=== PATIENT | female | born 1940 | race Caucasian/White ===

== ENCOUNTER 2024-06-09 18:14 | Emergency (ER) | payer MEDICARE, SELFPAY ==
[2024-06-09 18:15] VITALS: BP 175/83; PULSE 74; RESP 18; TEMP 36.9; O2SAT 97; BMI 25.8
--- NOTE | 2024-06-09 18:21 | ED_ITS ---
Discharge Plan Disposition Patient Disposition: Xfer Short-Term Hosp Condition: Good Referrals Follow up/Referrals: Provider,Referral, MD [Primary Care Provider] - See instructions Activity Restrictions/Add. Instructions Additional Instructions/Restrictions: Patient to be transported by EMS to [facility] for trauma evaluation and care of Dr. Hassan Clinical Impressions Clinical Impression: Closed cervical spine fracture Qualifiers: Encounter type: initial encounter Cervical vertebra fracture level: C3 Right rib fracture Qualifiers: Encounter type: initial encounter Rib fracture type: single rib Fracture type: closed Qualified Code(s): S22.31XA - Fracture of one rib, right side, initial encounter for closed fracture Fracture of left patella Qualifiers: Encounter type: initial encounter Fracture type: closed Laceration of face Qualifiers: Encounter type: initial encounter Qualified Code(s): S01.81XA - Laceration without foreign body of other part of head, initial encounter Discharge ED Provider: Tino Husain General Adult HPI <LESA Cervantes - Last Filed: 06/09/24 20:58> General Chief complaint: Fall Stated complaint: [id number] forehead lac Time Seen by Provider: 06/09/24 18:21 Related Data Allergies Allergy/AdvReac Type Severity Reaction Status Date / Time Penicillins Allergy Verified 06/09/24 18:35 <Tino Husain MD - Last Filed: 06/09/24 20:58> History of Present Illness HPI narrative: Please note that above description of symptoms, in this electronic medical record under categorization of recalled from ER triage doctor by RN are reflective of an initial nursing assessment, however, is not reflective of my full history and physical exam that was personally taken and clarified. Consequentially, this preceding description of symptoms, which may include the patient's categorized chief complaint in the EMR, do not reflect my personal clinical impression, and the ultimate description of history of present illness and patient stated complaints should be deferred to this section of the note. Unless stated otherwise or congruent with this section of the note, additional signs, symptoms, or incongruence should be interpreted as inaccurate with my clinical impression. PFSH <LESA Cervantes - Last Filed: 06/09/24 20:58> [facility] Disclaimer: The information contained in this section may have been updated after the patient was seen, as this information can be updated by other users. Social History Smoking Status: Never smoker alcohol intake: never current occupational status: retired Travel in the last 8 weeks: None <LESA Cervantes - Last Filed: 06/09/24 20:58> ROS Obtained: Yes Systems reviewed as appropriate & no additional complaints except as documented Physical Exam <LESA Cervantes - Last Filed: 06/09/24 20:58> General General appearance: alert and in no apparent distress Head Head exam: atraumatic and normal inspection Eye Eye exam: Present normal appearance, PERRL and EOMI ENT ENT exam: Present normal exam, normal oropharynx and mucous membranes moist Neck Neck exam: Present normal inspection, full ROM and trachea midline; Absent lymphadenopathy Chest Chest inspection: Present normal inspection and symmetric chest wall rise Respiratory Respiratory exam: Present normal lung sounds bilaterally; Absent accessory muscle use Cardiovascular Cardiovascular exam: Present regular rate, normal rhythm, normal heart sounds, +S1 and +S2 Abdominal Exam Abdominal exam: Present soft and normal bowel sounds; Absent tenderness, guarding or rebound Extremities Exam Extremities exam: Present normal inspection and full ROM Neurological Exam Neurological exam: Present alert, oriented X3 and CN II-XII intact Psychiatric Psychiatric exam: Present normal affect and normal mood Skin Skin exam: Present warm, dry and normal color Lymphatic Lymphatic Findings: no adenopathy <Tino Husain MD - Last Filed: 06/09/24 20:58> Head Head exam: other (Laceration on forehead, hemostatic) Neck Neck exam: Present other (C-collar is) Chest Chest inspection: Present tenderness (Right-sided, no overlying skin changes) Extremities Exam Extremities exam: Present tenderness (At left knee with associated erythema) Neurological Exam Neurological exam: Absent motor sensory deficit Medical Decision Making <LESA Cervantes - Last Filed: 06/09/24 20:58> Vital Signs: 06/09/24 18:15 06/09/24 19:30 06/09/24 20:00 Temperature 98.4 F Temperature Source Oral Pulse Rate 65 66 Pulse Rate [Right Radial] 74 Respiratory Rate 18 Blood Pressure 168/79 H 171/82 H Blood Pressure [Right Arm] 175/83 H Blood Pressure Mean 127 136 Blood Pressure Mean [Right Arm] 113 02 Sat by Pulse Oximetry 97 96 96 Oxygen Delivery Method Room Air Room Air Room Air 06/09/24 20:30 Temperature Temperature Source Pulse Rate 71 Pulse Rate [Right Radial] Respiratory Rate Blood Pressure 162/62 H Blood Pressure [Right Arm] Blood Pressure Mean 120 Blood Pressure Mean [Right Arm] 02 Sat by Pulse Oximetry 98 Oxygen Delivery Method Room Air Lab Data Lab Results 06/09/24 : WBC 14.3 H, RBC 5.16, Hgb 14.2, Hct 42.7, MCV 82.7, MCH 27.4, MCHC 33.1, RDW 14.3, Plt Count 281, MPV 8.5, Neut % (Auto) 67.8, Lymph % (Auto) 23.7, [place] % (Auto) 7.0, Eos % (Auto) 0.7, Baso % (Auto) 0.8, Neut # (Auto) 9.7 H, Lymph # (Auto) 3.4, Rose[place] # (Auto) 1.0, Eos # (Auto) 0.1, Baso # (Auto) 0.1, PT 10.4, INR 0.92, Sodium 140, Potassium 4.3, Chloride 108 H, Carbon Dioxide 24, Anion Gap 12.3, BUN 16, Creatinine 0.90, Estimated Creat Clear 46, Estimated GFR 59, Est GFR ( Amer) 72, Glucose 107 H, Calcium 9.5, Total Bilirubin 0.5, AST 47 H, ALT 35, Alkaline Phosphatase 99, Total Protein 7.7, Albumin 4.4, G lobulin 3.3 H, Albumin/Globulin Ratio 1.3 06/09/24 Unknown 06/09/24 Unknown Orders (Tests/Meds): ED MEDICATIONS Discontinued Medications Generic Name Dose Route Start Last Admin Trade Name Elliotq PRN Reason Stop Dose Admin Acetaminophen 1,000 mg 06/09/24 18:27 06/09/24 18:38 Acetaminophen 1,000mg/100ml Vial IV 06/09/24 18:28 1,000 mg ONCE ONE Administration Lactated Ringer's 1,000 mls @ 999 mls/hr 06/09/24 18:27 06/09/24 18:38 Lactated Ringer's 1000 Ml Bag IV 06/09/24 19:27 999 mls/hr .Q1H1M ONE Administration Ketorolac Tromethamine 15 mg 06/09/24 18:27 06/09/24 18:38 Ketorolac 30mg/Ml Vial IV 06/09/24 18:28 15 mg ONCE ONE Administration Lidocaine/Epinephrine 20 ml 06/09/24 18:35 06/09/24 18:53 Lidocaine 1% W/Epi 1:100,000 20ml Vial SQ 06/09/24 18:36 20 ml ONCE ONE Administration Tetanus/Reduced Diphtheria/Acell Pertussis 0.5 ml 06/09/24 18:27 06/09/24 18:47 Tet/Diphth/Pert-Adult 0.5ml Syringe IM 06/09/24 18:28 0.5 ml .ONCE ONE Administration ORDERS Category Date Time Status CT cervical spine wo con Stat Cat Scan 06/09/24 18:[address] chest wo con Stat Cat Scan 06/09/24 18:[address] facial bones wo con Stat Cat Scan 06/09/24 18:[address] head/brain wo con Stat Cat Scan 06/09/24 18:29 Completed XR knee LT 4V Stat Exams 06/09/24 18:27 Completed CBC w/Auto Diff [Complete Blood Count Auto Diff] Stat Lab 06/09/24 Completed CMP [Comprehensive Metabolic Panel] Stat Lab 06/09/24 Completed INR [Prothrombin Time INR] Stat Lab 06/09/24 Completed Medical Decision Narrative: In summary patient is a [age, sex] who presents to the emergency department for evaluation of [complaint]. Patient is [hemodynamically stable/unstable] upon arrival, [febrile/afebrile]. [Unremarkable physical exam, nonfocal exam versus focal remarkable exam]. Differential diagnosis includes [DDx]. Initial workup will be conducted with [hematologic labs, imaging, respiratory swab, describe workup]. Initial interventions include [crystalloid bolus, medications, p.o. challenge, etc.] initial workup reviewed by me [hematologic labs are remarkable for... Imaging remarkable for... Urinalysis remarkable for]. Upon repeat evaluation [patient had acceptable resolution of symptoms, had persistent pain for which additional interventions were conducted (describe interventions), tolerated p.o., was ambulatory, etc.]. Given this [patient is appropriate for discharge at this time and will be discharged with a prescription for... The case was discussed with hospital medicine regarding management and they will admit the patient their service for continued evaluation at this time... Etc.] Places where you can increase complexity: I informally interpreted the patient's chest x-ray or CT read and is remarkable for... Documenting what the court monitor shows with rate and rhythm Consideration of test but deferring. Ex: I considered chest x-ray on this patient however given that they have no oxygen requirement and are clear to auscultation all lung estrada will be deferred. Social determinants of health: Given that patient is undomiciled increases complexity. Given that patient has polysubstance abuse compounds all aspects of care <Tino Husain MD - Last Filed: 06/09/24 20:58> Medical Records Medical records reviewed: Yes I reviewed the patient's medical records. Jagdeep Inquiry Pt receiving controlled substance: No Jagdeep was queried for this patient: No Vital Signs: 06/09/24 18:15 06/09/24 19:30 06/09/24 20:00 Temperature 98.4 F Temperature Source Oral Pulse Rate 65 66 Pulse Rate [Right Radial] 74 Respiratory Rate 18 Blood Pressure 168/79 H 171/82 H Blood Pressure [Right Arm] 175/83 H Blood Pressure Mean 127 136 Blood Pressure Mean [Right Arm] 113 02 Sat by Pulse Oximetry 97 96 96 Oxygen Delivery Method Room Air Room Air Room Air 06/09/24 20:30 Temperature Temperature Source Pulse Rate 71 Pulse Rate [Right Radial] Respiratory Rate Blood Pressure 162/62 H Blood Pressure [Right Arm] Blood Pressure Mean 120 Blood Pressure Mean [Right Arm] 02 Sat by Pulse Oximetry 98 Oxygen Delivery Method Room Air Lab Data Lab Results 06/09/24 : WBC 14.3 H, RBC 5.16, Hgb 14.2, Hct 42.7, MCV 82.7, MCH 27.4, MCHC 33.1, RDW 14.3, Plt Count 281, MPV 8.5, Neut % (Auto) 67.8, Lymph % (Auto) 23.7, Roseau % (Auto) 7.0, Eos % (Auto) 0.7, Baso % (Auto) 0.8, Neut # (Auto) 9.7 H, Lymph # (Auto) 3.4, Rose[place] # (Auto) 1.0, Eos # (Auto) 0.1, Baso # (Auto) 0.1, PT 10.4, INR 0.92, Sodium 140, Potassium 4.3, Chloride 108 H, Carbon Dioxide 24, Anion Gap 12.3, BUN 16, Creatinine 0.90, Estimated Creat Clear 46, Estimated GFR 59, Est GFR ( Amer) 72, Glucose 107 H, Calcium 9.5, Total Bilirubin 0.5, AST 47 H, ALT 35, Alkaline Phosphatase 99, Total Protein 7.7, Albumin 4.4, G lobulin 3.3 H, Albumin/Globulin Ratio 1.3 Orders (Tests/Meds): ED MEDICATIONS Discontinued Medications Generic Name Dose Route Start Last Admin Trade Name Freq PRN Reason Stop Dose Admin Acetaminophen 1,000 mg 06/09/24 18:27 06/09/24 18:38 Acetaminophen 1,000mg/100ml Vial IV 06/09/24 18:28 1,000 mg ONCE ONE Administration Lactated Ringer's 1,000 mls @ 999 mls/hr 06/09/24 18:27 06/09/24 18:38 Lactated Ringer's 1000 Ml Bag IV 06/09/24 19:27 999 mls/hr .Q1H1M ONE Administration Ketorolac Tromethamine 15 mg 06/09/24 18:27 06/09/24 18:38 Ketorolac 30mg/Ml Vial IV 06/09/24 18:28 15 mg ONCE ONE Administration Lidocaine/Epinephrine 20 ml 06/09/24 18:35 06/09/24 18:53 Lidocaine 1% W/Epi 1:100,000 20ml Vial SQ 06/09/24 18:36 20 ml ONCE ONE Administration Tetanus/Reduced Diphtheria/Acell Pertussis 0.5 ml 06/09/24 18:27 06/09/24 18:47 Tet/Diphth/Pert-Adult 0.5ml Syringe IM 06/09/24 18:28 0.5 ml .ONCE ONE Administration ORDERS Category Date Time Status CT cervical spine wo con Stat Cat Scan 06/09/24 18:[address] chest wo con Stat Cat Scan 06/09/24 18:[address] facial bones wo con Stat Cat Scan 06/09/24 18:[address] head/brain wo con Stat Cat Scan 06/09/24 18:29 Completed XR knee LT 4V Stat Exams 06/09/24 18:27 Completed CBC w/Auto Diff [Complete Blood Count Auto Diff] Stat Lab 06/09/24 Completed CMP [Comprehensive Metabolic Panel] Stat Lab 06/09/24 Completed INR [Prothrombin Time INR] Stat Lab 06/09/24 Completed Medical Decision Narrative: This is an 84-year-old female with history of hypertension, hyperlipidemia, dementia not on anticoagulation presenting with fall. Patient was walking with her grandson, tripped, fell headfirst into large plant pot. No loss of conscious. Because of the fall, EMS was called. Patient was ambulatory on scene, brought to the emergency department for further evaluation. All caught on video, patient brought due to laceration on forehead. History obtained with patient family largely as well as EMS. On initial evaluation, patient alert oriented to self, hemodynamically stable. She has laceration on forehead is largely hemostatic. C-collar in place, difficult to assess for tenderness. Chest wall tenderness on the right, no overlying skin changes. Bilateral breath sounds, cardiac exam normal. Pulses equal and symmetric. Abdomen is soft, nontender, nondistended. She does have tenderness overlying her left knee at the patella with associated erythema. Differential includes intracranial hemorrhage, clinically significant neurologic C-spine injury, vascular injury, rib fracture, pneumothorax, pulmonary contusion, left lower extremity fracture, among others. Toradol, acetaminophen, LR, lidocaine closure. Independent rotation of workup with no intracranial hemorrhage. She does have C3 fracture as well as left patella fracture and right fifth rib fracture this closed without underlying pulmonary involvement. Given polytrauma fall from standing, [facility] contacted and case was discussed at length. Graciously accepted by Dr. Hassan. Laceration was closed, see laceration repair note. [employer] disclaimer Much of this encounter note is an electronic disposal worker spoken language to printed text. Electronic disposal worker of the spoken language may permit errors. Although I have reviewed the note, some errors may still exist. Procedures <LESA Cervantes - Last Filed: 06/09/24 20:58> Laceration Laceration 1: Site: face Side (If applicable): right Size (cm): 4.5 Description: linear Depth: simple, single layer Local Anesthetic: lidocaine 1% and with epi Amount of anesthesia used (mL): 10 Pre-repair: wound explored, irrigated extensively and deep structures intact Skin layer closed with: nylon Size (cm): 6-0 Number of sutures: 10 Critical Care <Tino Husain MD - Last Filed: 06/09/24 20:58> Critical Care Time Critical Care Time: No
--- NOTE | 2024-06-09 18:27 | XR_ITS ---
PROCEDURE INFORMATION: Exam: XR Left Knee Exam date and time: 06/09/2024 6:55 PM Age: 84 years old Clinical indication: Injury or trauma; Fall; Blunt trauma and swelling (edema); Knee; Left; Additional info: Fall, swelling at patella TECHNIQUE: Imaging protocol: Radiologic exam of the left knee. Views: 4 or more views. COMPARISON: No relevant prior studies available. FINDINGS: Bones/joints: Moderate osteophytosis and degenerative changes involve the 3 compartments of the left knee. Vertical lucency of the patella with probable avulsion fragment best seen on AP view at the lateral margin of the patella measuring 2.6 x 0.9 cm. Findings not well seen on sunrise view. Considering confirming facture findings with CT. Soft tissues: Normal. IMPRESSION: Vertical lucency of the patella with probable avulsion fragment best seen on AP view at the lateral margin of the patella measuring 2.6 x 0.9 cm. Findings not well seen on sunrise view. Considering confirming facture findings with CT.
--- NOTE | 2024-06-09 18:29 | CT_ITS ---
PROCEDURE INFORMATION: Exam: CT Head Without Contrast Exam date and time: 06/09/2024 6:51 PM Age: 84 years old Clinical indication: Injury or trauma; Fall; Blunt trauma (contusions or hematomas); Additional info: Trauma, critical injury suspected TECHNIQUE: Imaging protocol: Computed tomography of the head without contrast. Radiation optimization: All CT scans at this facility use at least one of these dose optimization techniques: automated exposure control; mA and/or kV adjustment per patient size (includes targeted exams where dose is matched to clinical indication); or iterative reconstruction. COMPARISON: No relevant prior studies available. FINDINGS: Brain: Old ischemia noted in the right basal ganglia. Scattered hypodensities noted in the bilateral deep white. Atherosclerosis noted in the bilateral cavernous carotid and vertebral arteries. No midline shift. Basal cisterns are patent. No acute hemorrhage or obvious acute infarct. Cortical volume loss noted. Cerebral ventricles: No ventriculomegaly. Paranasal sinuses: Visualized sinuses are unremarkable. No fluid levels. Mastoid air cells: Visualized mastoid air cells are well aerated. Orbital cavities: Left orbital lens replacement noted. Bones: Unremarkable. No acute fracture. Soft tissues: Right frontal and right periorbital swelling oted. Bilateral globes are intact. IMPRESSION: 1. Right frontal and right periorbital swelling noted 2. No acute intracranial disease or hemorrhage. 3. No obvious acute infarct. Please note if the patient's symptoms do not improve, or worsen, consider MRI with diffusion imaging. 4. Chronic deep white matter ischemic and senescent changes noted. Please see above.
--- NOTE | 2024-06-09 18:29 | CT_ITS ---
PROCEDURE INFORMATION: Exam: CT Cervical Spine Without Contrast Exam date and time: 06/09/2024 6:56 PM Age: 84 years old Clinical indication: Injury or trauma; Fall; Blunt trauma; Additional info: Trauma, critical injury suspected, fall TECHNIQUE: Imaging protocol: Computed tomography of the cervical spine without contrast. Radiation optimization: All CT scans at this facility use at least one of these dose optimization techniques: automated exposure control; mA and/or kV adjustment per patient size (includes targeted exams where dose is matched to clinical indication); or iterative reconstruction. COMPARISON: CT FACIAL BONES WO CON 06/09/2024 6:53 PM FINDINGS: Bones: A possible nondisplaced fracture through the posterosuperior left facet of the C3 vertebral body centered on sagittal image 48 of series 1002 and axial image 39 of series 3. No other fracture seen. Multilevel mild and [id number] degenerative disc disease. Vertebral body heights intact. Lungs: Lung apices are normal. Soft tissues: Unremarkable. IMPRESSION: Possible nondisplaced small avulsion type fracture of the posterosuperior left C3 facet. This is of uncertain acuity and may be chronic although acute fracture not excluded.
--- NOTE | 2024-06-09 18:30 | CT_ITS ---
PROCEDURE INFORMATION: Exam: CT Chest Without Contrast; Diagnostic Exam date and time: 06/09/2024 6:58 PM Age: 84 years old Clinical indication: Injury or trauma; Fall; Blunt trauma (contusions or hematomas); Additional info: Fall right chest wall pain TECHNIQUE: Imaging protocol: Diagnostic computed tomography of the chest without contrast. Radiation optimization: All CT scans at this facility use at least one of these dose optimization techniques: automated exposure control; mA and/or kV adjustment per patient size (includes targeted exams where dose is matched to clinical indication); or iterative reconstruction. COMPARISON: CT CERVICAL SPINE WO CON 06/09/2024 6:56 PM FINDINGS: Lungs: Dependent bilateral lung base opacities favor atelectasis. Right basilar calcified granuloma measures 4.5 mm in diameter. Pleural spaces: Unremarkable. No pneumothorax. No pleural effusion. Heart: Unremarkable. No cardiomegaly. No pericardial effusion. Coronary arteries: Moderate three-vessel calcific atherosclerotic disease of the coronary arteries. Lymph nodes: Unremarkable. No enlarged lymph nodes. Vasculature: Unremarkable. No aortic aneurysm. Spleen: Multiple benign-appearing calcific densities of the spleen. Bones/joints: Right lateral 5th rib nondisplaced fracture. Soft tissues: Unremarkable. IMPRESSION: Right lateral 5th rib nondisplaced fracture.
--- NOTE | 2024-06-09 18:30 | CT_ITS ---
PROCEDURE INFORMATION: Exam: CT Maxillofacial Without Contrast Exam date and time: 06/09/2024 6:53 PM Age: 84 years old Clinical indication: Injury or trauma; Fall; Blunt trauma (contusions or hematomas); Eyelid; Upper right; Additional info: Trauma, critical injury suspected, fall TECHNIQUE: Imaging protocol: Computed tomography of the face without contrast. Radiation optimization: All CT scans at this facility use at least one of these dose optimization techniques: automated exposure control; mA and/or kV adjustment per patient size (includes targeted exams where dose is matched to clinical indication); or iterative reconstruction. COMPARISON: CT HEAD/BRAIN WO CON 06/09/2024 6:51 PM FINDINGS: Orbital cavities: Orbits are normal. Globes are unremarkable. Paranasal sinuses: Normal. No air-fluid levels. Bones: See Soft tissues finding. Soft tissues: Soft tissue swelling noted adjacent to the superolateral right orbit and the lateral right maxillary and zygomatic region. No underlying acute fracture identified. IMPRESSION: Soft tissue swelling adjacent to the right orbit and maxillary and zygomatic region. No evident fracture.
[2024-06-09 18:38] LABS: Basophils # 0.1 K/mm3 (0-0.2); Basophils % 0.8 % (0.1-2.0); Eosinophils # 0.1 K/mm3 (0.0-0.4); Eosinophils % 0.7 % (0.1-12.0); Hematocrit 42.7 % (37.0-47.0); Hemoglobin 14.2 g/dL (12.2-16.2); Lymphocytes # 3.4 K/mm3 (0.7-4.5); Lymphocytes % 23.7 % (10-50); Mean Corpuscular HGB Conc 33.1 g/dL (31.8-35.4); Mean Corpuscular Hemoglobin 27.4 pg (27.0-31.2); Mean Corpuscular Volume 82.7 fl (81-99); Mean Platelet Volume 8.5 fl (7.4-10.4); Neutrophils # 9.7 K/mm3 (1.8-7.8); Neutrophils % 67.8 % (37.0-80.0); Platelet Count 281 K/mm3 (142-424); Red Blood Count 5.16 M/mm3 (4.20-5.40); Red Cell Distribution Width 14.3 % (11.5-17.5); White Blood Count 14.3 K/mm3 (4.8-10.8)
[2024-06-09] MEDS: ACETAMINOPHEN 1,000MG/100ML VIAL 1000 MG IV (18:38)
[2024-06-09] MEDS: KETOROLAC 30MG/ML VIAL 15 MG IV (18:38)
[2024-06-09] MEDS: LACTATED RINGERS 1000ML 1,000 ML 999 ML IV (18:38)
[2024-06-09 18:39] LABS: Chloride 108 mmol/L (98-107); Sodium 140 mmol/L (136-145)
[2024-06-09 18:40] LABS: Potassium 4.3 mmoL/L (3.5-5.1)
[2024-06-09 18:42] LABS: Alanine Aminotransferase 35 U/L (12-78); Albumin Level 4.4 g/dl (3.5-5.0); Albumin/Globulin Ratio 1.3 (1.1-1.8); Alkaline Phosphatase 99 U/L (38-126); Anion Gap 12.3 mEq/L (5-15); Aspartate Amino Transferase 47 U/L (14-36); Bilirubin,Total 0.5 mg/dl (0.2-1.3); Blood Urea Nitrogen 16 mg/dl (7-17); Carbon Dioxide 24 mmol/L (22.0-30.0); Creatinine Clearance Estimated 46 mL/min (50-200); Estimated Glomerular Filt Rate 59 ml/min (>60); GFR (African American) 72 ML/MIN (>60); Globulin 3.3 g/dL (1.3-3.2); Total Protein,Serum 7.7 g/dl (6.3-8.2)
[2024-06-09 18:43] LABS: Calcium 9.5 mg/dl (8.4-10.2); Glucose 107 mg/dl (74-100)
[2024-06-09 18:44] LABS: INR 0.92 (0.9-1.1); Prothrombin Time 10.4 seconds (10.1-12.5)
[2024-06-09] MEDS: TET/DIPHTH/PERT-ADULT 0.5ML SYRINGE 0.5 ML IM (18:47)
[2024-06-09] MEDS: LIDOCAINE 1% W/EPI 1:100,000 20ML VIAL 20 ML SQ (18:53)
--- NOTE | 2024-06-09 19:12 | PC.NURSE ---
Patient back from [facility]
[2024-06-09 19:30] VITALS: BP 168/79; PULSE 65; O2SAT 96
[2024-06-09 20:00] VITALS: BP 171/82; PULSE 66; O2SAT 96
--- NOTE | 2024-06-09 20:15 | PC.NURSE ---
Contacted [facility] in regards to a transfer, LESA Cannon at bed side preforming procedure.
[2024-06-09 20:30] VITALS: BP 162/62; PULSE 71; O2SAT 98
--- NOTE | 2024-06-09 21:33 | PC.NURSE ---
1914: Report called to ED charge nurseRajwinder RN
[2024-06-09 22:07] VITALS: BP 154/76; PULSE 65; RESP 18; TEMP 36.7; O2SAT 96
== END 2024-06-09 22:08 | disposition short-term general hospital (02) ==
PROVIDERS: Physician Assistant; Emergency Provider Emergency Medicine
DX: S12.201A Unspecified nondisplaced fracture of third cervical vertebra, initial encounter for closed fracture (principal); S82.002A Unspecified fracture of left patella, initial encounter for closed fracture; S22.31XA Fracture of one rib, right side, initial encounter for closed fracture; S01.81XA Laceration without foreign body of other part of head, initial encounter; W01.198A Fall on same level from slipping, tripping and stumbling with subsequent striking against other object, initial encounter; Z23 Encounter for immunization
CPT/HCPCS: 12013; 70450; 70486; 71250; 72125; 73564; 80053; 85025; 85610; 90471; 90715; 96361; 96374; 96375; 99285; J0131; J1885; J7120

== ENCOUNTER 2025-02-27 08:51 | Emergency (ER) | payer MEDICARE, SELFPAY ==
[2025-02-27] VITALS (8 sets, daily range): BP systolic 114–147; BP diastolic 47–78; PULSE 65–80; RESP 12–24; TEMP 36.8–36.9; O2SAT 91–96; BMI 29.6
--- NOTE | 2025-02-27 08:56 | ECG_ITS ---
APPROVED REPORT Exam: Resting ECG HR:68 bpm ECG Measurements Heart Rate 68 AXES MO 144 P 66 QRSd 100 QRS 14 QT 424 T 117 QTc 442 Conclusion Sinus rhythm Anterolateral T wave inversions with no reciprocal change Electronically signed by : JEFF FALCON, 02/27/2025 15:05:50
--- NOTE | 2025-02-27 09:05 | PC.NURSE ---
dr cruz at bedside
--- NOTE | 2025-02-27 09:11 | CT_ITS ---
PROCEDURE INFORMATION: Exam: CTA Abdomen and Pelvis With Contrast Exam date and time: 02/27/2025 10:39 AM Age: 85 years old Clinical indication: Injury or trauma; Additional info: Trauma, critical injury suspected TECHNIQUE: Imaging protocol: Computed tomographic angiography of the abdomen and pelvis with contrast. Exam focused on the arteries. 3D rendering (Not supervised by radiologist): MIP and/or 3D reconstructed images were created by the technologist. Radiation optimization: All CT scans at this facility use at least one of these dose optimization techniques: automated exposure control; mA and/or kV adjustment per patient size (includes targeted exams where dose is matched to clinical indication); or iterative reconstruction. Contrast material: ISOVUE; Contrast volume: 80 ml; Contrast route: INTRAVENOUS (IV); COMPARISON: CT BONY PELVIS 02/27/2025 10:28 AM FINDINGS: Aorta: The abdominal aorta is normal in course and caliber with moderate calcific atheromatous plaque. Celiac trunk and mesenteric arteries: No occlusion or significant stenosis. Renal arteries: Heavy calcific atheromatous plaque noted at the origins of the renal arteries, especially the right side. Right iliac arteries: No occlusion or significant stenosis. Left iliac arteries: No occlusion or significant stenosis. Liver: No mass. Gallbladder and biliary ducts: The gallbladder is partially distended. Pancreas: Unremarkable. No mass. No ductal dilation. Spleen: Unremarkable. No splenomegaly. Adrenal glands: Unremarkable. No mass. Kidneys and ureters: The kidneys enhance and excrete contrast symmetrically and there is no hydronephrosis. Stomach and bowel: There is no evidence for small bowel obstruction. Scattered colonic diverticula are noted. Appendix: No evidence of appendicitis. Intraperitoneal space: Unremarkable. No free air. No significant fluid collection. Lymph nodes: Unremarkable. No enlarged lymph nodes. Urinary bladder: Unremarkable. No mass. Reproductive: Unremarkable as visualized. Bones/joints: The bones are osteopenic with degenerative change. Soft tissues: Unremarkable. IMPRESSION: No evidence of acute trauma in the abdomen and pelvis.
--- NOTE | 2025-02-27 09:11 | CT_ITS ---
PROCEDURE INFORMATION: Exam: CTA Head With Contrast, Arteriography Exam date and time: 02/27/2025 10:36 AM Age: 85 years old Clinical indication: Injury or trauma; Additional info: Trauma, critical injury suspected TECHNIQUE: Imaging protocol: Computed tomographic angiography of the head with contrast. Exam focused on the arteries. 3D rendering (Not supervised by radiologist): MIP and/or 3D reconstructed images were created by the technologist. Radiation optimization: All CT scans at this facility use at least one of these dose optimization techniques: automated exposure control; mA and/or kV adjustment per patient size (includes targeted exams where dose is matched to clinical indication); or iterative reconstruction. Contrast material: ISOVUE; Contrast volume: 80 ml; Contrast route: INTRAVENOUS (IV); COMPARISON: CT HEAD/BRAIN WO CON 02/27/2025 10:19 AM FINDINGS: ANTERIOR CIRCULATION: Right internal carotid artery: Intracranial segment is patent with no significant stenosis. No aneurysm. Right middle cerebral artery: No occlusion or significant stenosis. No aneurysm. Right anterior cerebral artery: No occlusion or significant stenosis. No aneurysm. Left internal carotid artery: Intracranial segment is patent with no significant stenosis. No aneurysm. Left middle cerebral artery: No occlusion or significant stenosis. No aneurysm. Left anterior cerebral artery: No occlusion or significant stenosis. No aneurysm. POSTERIOR CIRCULATION: Right vertebral artery: No occlusion or significant stenosis. No aneurysm. Left vertebral artery: No occlusion or significant stenosis. No aneurysm. Basilar artery: No occlusion or significant stenosis. No aneurysm. Right posterior cerebral artery: No occlusion or significant stenosis. No aneurysm. Left posterior cerebral artery: No occlusion or significant stenosis. No aneurysm. Brain: No definite mass, mass effect, or midline shift. Cerebral ventricles: No ventriculomegaly. Bones/joints: Unremarkable. No acute fracture. Soft tissues: Unremarkable. IMPRESSION: No large vessel stenosis or occlusion.
--- NOTE | 2025-02-27 09:11 | XR_ITS ---
PROCEDURE INFORMATION: Exam: XR Left Ankle Exam date and time: 02/27/2025 9:32 AM Age: 85 years old Clinical indication: Injury or trauma; Fall; Blunt trauma; Ankle; Left; Additional info: Bilateral ankle pain after fall TECHNIQUE: Imaging protocol: Radiologic exam of the left ankle. Views: 3 or more views. COMPARISON: CR XR ANKLE LT MIN 3V 02/27/2025 9:32 AM FINDINGS: Bones/joints: Normal. Soft tissues: Normal. IMPRESSION: No acute findings.
--- NOTE | 2025-02-27 09:11 | CT_ITS ---
PROCEDURE INFORMATION: Exam: CT Pelvis Without Contrast, Skeleton Exam date and time: 02/27/2025 10:28 AM Age: 85 years old Clinical indication: Injury or trauma; Additional info: Trauma, critical injury suspected TECHNIQUE: Imaging protocol: Computed tomography of the pelvis without contrast. Exam focused on the skeleton. Radiation optimization: All CT scans at this facility use at least one of these dose optimization techniques: automated exposure control; mA and/or kV adjustment per patient size (includes targeted exams where dose is matched to clinical indication); or iterative reconstruction. COMPARISON: CT LUMBAR SPINE WO CON 02/27/2025 10:26 AM FINDINGS: Bones/joints: The bones are osteopenic. There is no evidence for acute displaced fracture. There is relatively symmetric degenerative joint space narrowing about the hips osteophytosis. Soft tissues: Unremarkable. IMPRESSION: Osteopenia and degenerative change in the pelvis. If there remains clinical suspicion for occult nondisplaced fracture, suggest noncontrast MRI of the pelvis.
--- NOTE | 2025-02-27 09:11 | CT_ITS ---
PROCEDURE INFORMATION: Exam: CT Thoracic Spine Without Contrast Exam date and time: 02/27/2025 10:23 AM Age: 85 years old Clinical indication: Injury or trauma; Additional info: Trauma, critical injury suspected TECHNIQUE: Imaging protocol: Computed tomography of the thoracic spine without contrast. Radiation optimization: All CT scans at this facility use at least one of these dose optimization techniques: automated exposure control; mA and/or kV adjustment per patient size (includes targeted exams where dose is matched to clinical indication); or iterative reconstruction. COMPARISON: CT CERVICAL SPINE WO CON 02/27/2025 10:20 AM FINDINGS: Bones/joints: The bones are osteopenic. Vertebral body heights are preserved. There is no significant thoracic canal or foraminal narrowing. Soft tissues: Unremarkable. Lymph nodes: Incidental note is made of mediastinal and hilar calcific lymphadenopathy. In the posterior aspect of the left upper lobe there is a 13 x 11 x 9 mm noncalcified nodule. Notable peribronchial cuffing is present particularly in the upper lobes. IMPRESSION: Osteopenia, thoracic spine. Granulomatous disease in the chest. Indeterminate 13 mm left upper lobe pulmonary nodule. For both low risk and high risk patients, consider CT Chest at 3 months, PET/CT, or biopsy. (Reference: Bernardo) References: Romanholamont H, et al. Guidelines for Management of Incidental Pulmonary Nodules Detected on CT Images: From the Fleischner Society 2017. Radiology. 2017;284(1):228-243.
--- NOTE | 2025-02-27 09:11 | CT_ITS ---
PROCEDURE INFORMATION: Exam: CT Cervical Spine Without Contrast Exam date and time: 02/27/2025 10:20 AM Age: 85 years old Clinical indication: Injury or trauma; Additional info: Trauma, critical injury suspected TECHNIQUE: Imaging protocol: Computed tomography of the cervical spine without contrast. Radiation optimization: All CT scans at this facility use at least one of these dose optimization techniques: automated exposure control; mA and/or kV adjustment per patient size (includes targeted exams where dose is matched to clinical indication); or iterative reconstruction. COMPARISON: CT CERVICAL SPINE WO CON 06/09/2024 6:56 PM FINDINGS: Bones/joints: No acute fracture. Normal alignment. No significant disc bulge or herniation. No severe spinal canal stenosis. No significant neural foraminal narrowing. Lungs: Mild atelectasis in the left upper lobe. Soft tissues: Unremarkable. IMPRESSION: No acute findings.
--- NOTE | 2025-02-27 09:11 | CT_ITS ---
PROCEDURE INFORMATION: Exam: CT Lumbar Spine Without Contrast Exam date and time: 02/27/2025 10:26 AM Age: 85 years old Clinical indication: Injury or trauma; Additional info: Trauma, critical injury suspected TECHNIQUE: Imaging protocol: Computed tomography of the lumbar spine without contrast. Radiation optimization: All CT scans at this facility use at least one of these dose optimization techniques: automated exposure control; mA and/or kV adjustment per patient size (includes targeted exams where dose is matched to clinical indication); or iterative reconstruction. COMPARISON: CT THORACIC SPINE WO CON 02/27/2025 10:23 AM FINDINGS: Bones/joints: There is no evidence for acute lumbar fracture. The bones are osteopenic. There is a 3 mm grade 1 L4-L5 spondylolisthesis. Spondylosis is noted with disc bulging, facet arthropathy and uncovertebral spurring causing moderate canal stenosis at L4-L5 and moderate neural foraminal narrowing at L3-L4, L4-L5 and L5-S1. Soft tissues: Unremarkable. IMPRESSION: Osteopenia, spondylosis and L4-L5 spondylolisthesis.
--- NOTE | 2025-02-27 09:11 | XR_ITS ---
PROCEDURE INFORMATION: Exam: XR Right Tibia and Fibula Exam date and time: 02/27/2025 9:32 AM Age: 85 years old Clinical indication: Injury or trauma; Fall; Blunt trauma; Lower leg; Right; Additional info: Bilateral ankle pain after fall TECHNIQUE: Imaging protocol: Radiologic exam of the right tibia and fibula. Views: 2 views. COMPARISON: CR XR TIBIA FIBULA RT 2V 02/27/2025 9:32 AM FINDINGS: Bones/joints: Normal. Soft tissues: Normal. IMPRESSION: No acute findings.
--- NOTE | 2025-02-27 09:11 | CT_ITS ---
PROCEDURE INFORMATION: Exam: CTA Neck With Contrast Exam date and time: 02/27/2025 10:36 AM Age: 85 years old Clinical indication: Injury or trauma; Additional info: Trauma, critical injury suspected TECHNIQUE: Imaging protocol: Computed tomographic angiography of the neck with contrast. Exam focused on the cervical segments of the vasculature. 3D rendering (Not supervised by radiologist): MIP and/or 3D reconstructed images were created by the technologist. Radiation optimization: All CT scans at this facility use at least one of these dose optimization techniques: automated exposure control; mA and/or kV adjustment per patient size (includes targeted exams where dose is matched to clinical indication); or iterative reconstruction. Contrast material: ISOVUE; Contrast volume: 80 ml; Contrast route: INTRAVENOUS (IV); COMPARISON: CT CERVICAL SPINE WO CON 02/27/2025 10:20 AM FINDINGS: Right common carotid artery: No stenosis. No dissection or occlusion. Right internal carotid artery: There is mild calcification of the right internal carotid origin with less than 50% compromise of the lumen. Right external carotid artery: No occlusion or stenosis of the origin. Left common carotid artery: No stenosis. No dissection or occlusion. Left internal carotid artery: There is minimal calcification of the left internal carotid origin with less than 50% compromise of the lumen. Left external carotid artery: No occlusion or stenosis of the origin. Right vertebral artery: No stenosis. No dissection or occlusion. Left vertebral artery: No stenosis. No dissection or occlusion. Thyroid: The thyroid appears normal. Lymph nodes: There are multiple mildly enlarged nonspecific mediastinal nodes with calcifications suggesting chronic granulomatous changes. Soft tissues: Normal. No significant soft tissue swelling. Bones/joints: There is no evidence of fracture. Lungs: The visualized portions of the lung apices are normal. IMPRESSION: 1. There are multiple mildly enlarged nonspecific mediastinal nodes with calcifications suggesting chronic granulomatous changes. 2. There is mild calcification of the right internal carotid origin with less than 50% compromise of the lumen. 3. There is minimal calcification of the left internal carotid origin with less than 50% compromise of the lumen. 4. There are codominant vertebral arteries with no stenosis or dissection. 5. There is no evidence of fracture. REFERENCES: NASCET CRITERIA. The degree of stenosis in the cervical segment of the internal carotid artery is based on NASCET criteria. Normal is no stenosis. Mild is less than 50% stenosis. Moderate is 50-69% stenosis. Severe is 70% to 99% stenosis. Total occlusion is no detectable patent lumen.
--- NOTE | 2025-02-27 09:11 | CT_ITS ---
PROCEDURE INFORMATION: Exam: CT Head Without Contrast Exam date and time: 02/27/2025 10:19 AM Age: 85 years old Clinical indication: Injury or trauma; Additional info: Trauma, critical injury suspected TECHNIQUE: Imaging protocol: Computed tomography of the head without contrast. Radiation optimization: All CT scans at this facility use at least one of these dose optimization techniques: automated exposure control; mA and/or kV adjustment per patient size (includes targeted exams where dose is matched to clinical indication); or iterative reconstruction. COMPARISON: CT HEAD/BRAIN WO CON 06/09/2024 6:51 PM FINDINGS: Brain: Moderate chronic microvascular ischemic changes are noted in the periventricular areas. Mild diffuse cerebral atrophy is seen. Hypodensities in basal ganglia and thalami likely represent old lacunar infarcts. Cerebral ventricles: No ventriculomegaly. Paranasal sinuses: Mild mucosal thickening is seen in the left maxillary sinus and ethmoid air cells. Mastoid air cells: Visualized mastoid air cells are well aerated. Bones: Unremarkable. No acute fracture. Soft tissues: Unremarkable. IMPRESSION: No acute findings. Moderate chronic microvascular ischemic changes with mild diffuse cerebral atrophy. Hypodensities in basal ganglia and thalami likely represent old lacunar infarcts. Mild mucosal thickening in the left maxillary sinus and ethmoid air cells.
--- NOTE | 2025-02-27 09:11 | XR_ITS ---
PROCEDURE INFORMATION: Exam: XR Left Tibia and Fibula Exam date and time: 02/27/2025 9:32 AM Age: 85 years old Clinical indication: Injury or trauma; Fall; Blunt trauma; Lower leg; Left; Additional info: Bilateral ankle pain after fall TECHNIQUE: Imaging protocol: Radiologic exam of the left tibia and fibula. Views: 2 views. COMPARISON: CR XR ANKLE LT MIN 3V 02/27/2025 9:32 AM FINDINGS: Bones/joints: Normal. Soft tissues: Normal. IMPRESSION: No acute findings.
--- NOTE | 2025-02-27 09:11 | XR_ITS ---
PROCEDURE INFORMATION: Exam: XR Right Ankle Exam date and time: 02/27/2025 9:32 AM Age: 85 years old Clinical indication: Injury or trauma; Fall; Blunt trauma; Ankle; Right; Additional info: Bilateral ankle pain after fall TECHNIQUE: Imaging protocol: Radiologic exam of the right ankle. Views: 3 or more views. COMPARISON: CR XR TIBIA FIBULA RT 2V 02/27/2025 9:32 AM FINDINGS: Bones/joints: Normal. Soft tissues: Normal. IMPRESSION: No acute findings.
--- NOTE | 2025-02-27 09:11 | CT_ITS ---
PROCEDURE INFORMATION: Exam: CTA Chest With Contrast Exam date and time: 02/27/2025 10:39 AM Age: 85 years old Clinical indication: Injury or trauma; Additional info: Trauma, critical injury suspected TECHNIQUE: Imaging protocol: Computed tomographic angiography of the chest with contrast. Exam focused on the arteries. 3D rendering (Not supervised by radiologist): MIP and/or 3D reconstructed images were created by the technologist. Radiation optimization: All CT scans at this facility use at least one of these dose optimization techniques: automated exposure control; mA and/or kV adjustment per patient size (includes targeted exams where dose is matched to clinical indication); or iterative reconstruction. Contrast material: ISOVUE; Contrast volume: 80 ml; Contrast route: INTRAVENOUS (IV); COMPARISON: CT CHEST WO CON 06/09/2024 6:58 PM FINDINGS: Pulmonary arteries: Normal. No pulmonary emboli. Aorta: Unremarkable. No aortic aneurysm. No aortic dissection. Lungs: There is streaky atelectasis in the lower lobes, lingula and right middle lobe. A cyst or pneumatocele is noted in the superior segment of the right lower lobe. In the posterior aspect of the left upper lobe there is a 9 x 9 x 9 mm irregularly-shaped nodular opacity. Pleural spaces: Unremarkable. No pneumothorax. No pleural effusion. Heart: Unremarkable. No cardiomegaly. No pericardial effusion. Coronary arteries: Coronary artery calcification is noted. Lymph nodes: There is calcific mediastinal and hilar lymphadenopathy noted. Bones/joints: Degenerative change and osteopenia are noted in the bones. Soft tissues: Unremarkable. IMPRESSION: No evidence of acute trauma in the chest. Granulomatous disease. Scattered atelectasis. 9 mm nodular opacity in the left upper lobe. For both low risk and high risk patients, consider CT Chest at 3 months, PET/CT, or biopsy. (Reference: Bernardo) References: Romanholamont Mccrary, et al. Guidelines for Management of Incidental Pulmonary Nodules Detected on CT Images: From the Fleischner Society 2017. Radiology. 2017;284(1):228-243.
[2025-02-27 09:15] LABS: Coronavirus 19, PCR Not Detected (NotDetected); Influenza A, PCR Not Detected (NotDetected); Influenza B, PCR Not Detected (NotDetected)
[2025-02-27 09:19] LABS: Basophils % 0.3 % (0.1-2.0); Eosinophils % 0.2 % (0.1-12.0); Hematocrit 44.4 % (37.0-47.0); Hemoglobin 14.7 g/dL (12.2-16.2); Lymphocytes # 2.9 K/mm3 (0.7-4.5); Lymphocytes % 20.9 % (10-50); Mean Corpuscular HGB Conc 33.1 g/dL (31.8-35.4); Mean Corpuscular Hemoglobin 27.6 pg (27.0-31.2); Mean Corpuscular Volume 83.5 fl (81-99); Mean Platelet Volume 10.9 fl (7.4-10.4); Monocytes # 2.6 K/mm3 (0.1-1.0); Monocytes % 18.5 % (1.7-9.3); Neutrophils # 8.3 K/mm3 (1.8-7.8); Neutrophils % 59.4 % (37.0-80.0); Platelet Count 229 K/mm3 (142-424); Red Blood Count 5.32 M/mm3 (4.20-5.40)
[2025-02-27 09:22] LABS: VBG Base Excess -1.6 mmol/L (-2.4-2.3); VBG HCO3 24.8 mmol/L (23-30); VBG Oxygen Saturation 53.1 % (50-70); VBG PO2 29.7 mmol/L (28-40); VBG Total CO2 26.4 mmol/L (23-27)
[2025-02-27 09:24] LABS: Albumin Level 4.3 g/dl (3.5-5.0); Chloride 103 mmol/L (98-107); Potassium 4.4 mmoL/L (3.5-5.1); Sodium 140 mmol/L (136-145)
[2025-02-27 09:25] LABS: Lactate Venous 2.3 mmol/L (0.4-2.0); VBG PCO2 51.4 mmol/L (35-51)
[2025-02-27] MEDS: ACETAMINOPHEN 1,000MG/100ML VIAL 1000 MG IV (09:25)
[2025-02-27 09:26] LABS: Alanine Aminotransferase 24 U/L (12-78); Blood Urea Nitrogen 16 mg/dl (7-17); Creatinine Clearance Estimated 41 mL/min (50-200); Estimated Glomerular Filt Rate 39 ml/min (>60); GFR (African American) 47 ML/MIN (>60)
[2025-02-27 09:27] LABS: Activated Partial Thrombo Time 31.3 seconds (22.8-30.6); Albumin/Globulin Ratio 1.4 (1.1-1.8); Alkaline Phosphatase 105 U/L (38-126); Anion Gap 13.4 mEq/L (5-15); Aspartate Amino Transferase 40 U/L (14-36); Bilirubin,Total 0.6 mg/dl (0.2-1.3); Carbon Dioxide 28 mmol/L (22.0-30.0); Creatine Kinase 94 U/L (30-135); Globulin 3.1 g/dL (1.3-3.2); Glucose 112 mg/dl (74-100); INR 0.97 (0.9-1.1); Magnesium 2.3 mg/dl (1.6-2.3); Phosphorous 4.3 mg/dl (2.5-4.5); Prothrombin Time 10.9 seconds (10.1-12.5); Total Protein,Serum 7.4 g/dl (6.3-8.2)
[2025-02-27 09:31] LABS: Microscopic, Urine URINE MICROSCOPIC (MICROSCOPIC)
--- NOTE | 2025-02-27 09:32 | PC.NURSE ---
xr at bedside
[2025-02-27 09:34] LABS: Appearance,Urine CLEAR (Clear); Blood, Urine 2+ (Negative); Color,Urine YELLOW (Yellow); Glucose,Urine (UA) Negative (Negative); Ketones,Urine TRACE (Negative); Leukocyte Esterase,Urine Negative (Negative); Nitrate,Urine Negative (Negative); PH,Urine 5.5 (5.0-8.5); Protein,Urine 2+ (Negative); Specific Gravity, Urine >= 1.030 (1.005-1.030)
[2025-02-27 09:44] LABS: T4 (Thyroxine) 9.1 ug/dl (5.53-11.0)
[2025-02-27 09:56] LABS: Bilirubin,Urine 2+ (Negative)
[2025-02-27] MEDS: LACTATED RINGERS 1000ML 1,000 ML 999 ML IV (09:56)
--- NOTE | 2025-02-27 09:56 | ED_ITS ---
Discharge Plan Disposition Patient Disposition: Home, Self-Care Condition: Good Prescriptions Prescriptions: New levofloxacin 750 mg tablet 750 mg PO DAILY 7 Days Qty: 7 0RF No Action quetiapine 25 mg tablet 25 mg PO DAILY donepezil 5 mg tablet 5 mg PO DAILY levothyroxine [Synthroid] 100 mcg tablet 100 mcg PO DAILY paroxetine HCl 20 mg tablet 20 mg PO DAILY memantine 10 mg tablet 10 mg PO HS Referrals Follow up/Referrals: Provider,Referral, MD [Primary Care Provider] - See instructions Activity Restrictions/Add. Instructions Additional Instructions/Restrictions: You were evaluated in the emergency department today. You have a urinary tract infection and a mild acute kidney injury. As we discussed, you also have a nodular opacity in your lung, which is concerning for pneumonia versus a possible benign nodule or mass. Given the symptoms, we are treating this as a pneumonia. We are giving you an antibiotic that covers both your urine and lung. I recommend following up with primary care for reassessment of this nodular opacity to make sure it either goes away or does not increase in size. He also have some narrowing of the blood vessels going to your brain and some chronic changes to your brain related to this. I also recommend close follow-up with primary care for this. As we discussed, blood cultures were sent and are pending, and we will call you if anything comes back abnormal. We were considering admission today given lab abnormalities and the falls at home, but since you are electing to go home, please return right away for new or worsening symptoms. Clinical Impressions Clinical Impression: Acute UTI, ALAN (acute kidney injury), Lung nodule, Pneumonia, Intracranial atherosclerosis, Cerebral microvascular disease, Fall Instructions Patient Instructions: Pneumonia--Adult, DI for Urinary Tract Infection (UTI), How to Prevent Falls, DI for Acute Kidney Injury Print Language Print Language: Lao Discharge ED Provider: Meeta Espino General Adult HPI General Chief complaint: Fall Stated complaint: fall Time Seen by Provider: 02/27/25 08:58 Mode of Arrival: EMS Source of Information: Patient Description of Symptoms (Recalled from ER Triage Doc. by RN): pt comes in ER from falling twice at home and states everything hurts, pt appears tender to right hip upon palpation, pt family denies any loc or blood thinner use, fbs upon triage 109 History of Present Illness HPI narrative: This patient is an 85-year-old female with a history of dementia presenting to the emergency department for evaluation with concern for fall with pain everywhere. According to the patient's daughter, patient has had upper respiratory infection symptoms for the last few days and they have been treating at home with [id number] medication. They note that they last gave her Mucinex early this morning around 3 or 4 AM. They state that the patient has an apartment connected to their house and they have monitor set up throughout the apartment. She had an unwitnessed ground-level fall, and they heard her calling out for help. They went to check on her and helped her up, but she was not able to walk and then fell again. She complains of pain all over, especially both ankles. She has a knot on the back of her head, and they report that when she fell she did have a clot clipping her hair. Unclear if she lost consciousness or not. She does not take blood thinners or aspirin. She has had the cough and congestion but no history of cardiopulmonary issues according to family. Related Data Home Medications ?Medication ?Instructions ?Recorded ?Confirmed donepezil 5 mg tablet 5 mg PO DAILY 02/27/25 02/27/25 levothyroxine 100 mcg tablet 100 mcg PO DAILY 02/27/25 02/27/25 (Synthroid) memantine 10 mg tablet 10 mg PO HS 02/27/25 02/27/25 paroxetine HCl 20 mg tablet 20 mg PO DAILY 02/27/25 02/27/25 quetiapine 25 mg tablet 25 mg PO DAILY 02/27/25 02/27/25 Previous Rx's ?Medication ?Instructions ?Recorded levofloxacin 750 mg tablet 750 mg PO DAILY 7 days #7 tabs 02/27/25 Allergies Allergy/AdvReac Type Severity Reaction Status Date / Time Penicillins Allergy Hives Verified 02/27/25 09:33 [facility] Disclaimer: The information contained in this section may have been updated after the patient was seen, as this information can be updated by other users. Social History Smoking Status: Never smoker alcohol intake: never current occupational status: retired Travel in the last 8 weeks: None Have you lived/traveled outside [place] in past 30 days?: No Contact w/someone who lives/traveled outside [place] past 30 days?: No Exposure to someone with infectious disease in past 14 days?: No Do you have a fever (greater than 100.4 F or 38 C)?: No Have you tested positive for COVID-19: No Exposed to someone with COVID-19 in past 14 days?: No Do you have a sore throat?: No Do you have a cough?: No Do you have any weakness?: No Do you have any diarrhea?: No Are you experiencing any unusual bleeding?: No Do you have any muscle aches/pain?: No Do you have any abdominal pain?: No Are you experiencing loss of taste or smell?: No ROS Obtained: Yes All systems reviewed & no additional complaints except as documented Physical Exam General General appearance: alert and in no apparent distress Comment: Patient has tenderness to palpation all over her entire body that is out of proportion to exam. She is tender over all of her extremities, her chest, abdomen, back, head, everywhere. No obvious deformity noted on clinical exam with the exception of hematoma to the back of her scalp Head Head exam: normocephalic and other (Posterior scalp hematoma) Eye Eye exam: Present normal appearance, PERRL and EOMI ENT ENT exam: Present normal exam, normal oropharynx, mucous membranes moist and normal external ear exam Neck Neck exam: Present normal inspection, trachea midline, tenderness and other (C- collar in place) Chest Chest inspection: Present normal inspection, symmetric chest wall rise and tenderness Respiratory Respiratory exam: Present other (Bibasilar rhonchi, left greater than right); Absent respiratory distress, wheezes, stridor or accessory muscle use Cardiovascular Cardiovascular exam: Present regular rate and normal rhythm Abdominal Exam Abdominal exam: Present soft and tenderness; Absent distention or guarding Extremities Exam Extremities exam: Present normal inspection, full ROM, tenderness (Bilateral ankles/distal tib-fib), normal capillary refill and other (Moves all 4 extremities equally, all compartment soft, neurovascularly intact distally); Absent edema Back Exam Back exam: Present normal inspection, full ROM and tenderness Neurological Exam Neurological exam: Present alert and CN II-XII intact; Absent motor sensory deficit Psychiatric Psychiatric exam: Present normal affect and normal mood Skin Skin exam: Present warm and dry Medical Decision Making Medical Records Medical records reviewed: Yes I reviewed the patient's medical records. Screening: Per USPSTF and CDC recommendations, given the prevalence of disease in our region, it is our hospital?s policy to screen for HIV and viral Hepatitis for all patients aged 18 and over and those with ongoing risk factors. Jagdeep Inquiry Pt receiving controlled substance: No Vital Signs: 02/27/25 09:01 02/27/25 09:04 02/27/25 09:30 Temperature 98.4 F Temperature Source Oral Pulse Rate 65 71 Pulse Rate [Left Radial] 68 Respiratory Rate 12 20 22 Blood Pressure 123/52 L 114/47 L Blood Pressure [Right Arm] 123/53 L Blood Pressure Mean Blood Pressure Mean [Right Arm] 76 02 Sat by Pulse Oximetry 94 L 93 L 91 L Oxygen Delivery Method Room Air Room Air Room Air Oxygen Flow Rate (LPM) 02/27/25 10:00 02/27/25 11:00 02/27/25 11:30 Temperature Temperature Source Pulse Rate 68 75 71 Pulse Rate [Left Radial] Respiratory Rate 24 20 18 Blood Pressure 117/56 L 114/56 L 133/65 Blood Pressure [Right Arm] Blood Pressure Mean 86 Blood Pressure Mean [Right Arm] 02 Sat by Pulse Oximetry 93 L 93 L 96 Oxygen Delivery Method Nasal Cannula Oxygen Flow Rate (LPM) 2 02/27/25 12:00 02/27/25 12:00 02/27/25 12:39 Temperature 98.2 F Temperature Source Pulse Rate 66 80 Pulse Rate [Left Radial] Respiratory Rate 20 Blood Pressure 147/62 H 125/78 Blood Pressure [Right Arm] Blood Pressure Mean Blood Pressure Mean [Right Arm] 02 Sat by Pulse Oximetry 95 94 L Oxygen Delivery Method Room Air Room Air Room Air Oxygen Flow Rate (LPM) Lab Data Lab results reviewed: Yes I reviewed the patient's lab results. Lab Results 02/27/25 08:56: WBC 14.0 H, RBC 5.32, Hgb 14.7, Hct 44.4, MCV 83.5, MCH 27.6, MCHC 33.1, RDW 14.0, Plt Count 229, MPV 10.9 H, Neut % (Auto) 59.4, Lymph % (Auto) 20.9, [place] % (Auto) 18.5 H, Eos % (Auto) 0.2, Baso % (Auto) 0.3, Neut # (Auto) 8.3 H, Lymph # (Auto) 2.9, [place] # (Auto) 2.6 H, Eos # (Auto) 0.0, Baso # (Auto) 0.0, PT 10.9, INR 0.97, APTT 31.3 H, Sodium 140, Potassium 4.4, Chloride 103, Carbon Dioxide 28, Anion Gap 13.4, BUN 16, Creatinine 1.30 H, Estimated Creat Clear 41, Estimated GFR 39 L, Est GFR ( Amer) 47 L, Glucose 112 H, Calcium 9.0, Phosphorus 4.3, Magnesium 2.3, Total Bilirubin 0.6, AST 40 H, ALT 24, Alkaline Phosphatase 105, Total Creatine Kinase 94, Total Protein 7.4, Albumin 4.3, Globulin 3.1, Albumin/Globulin Ratio 1.4, TSH 3.21, Thyroxine (T4) 9.1 02/27/25 08:59: SARS-CoV-2 (PCR) Not detected, Influenza A Untype (PCR) Not detected, Influenza Type B (PCR) Not detected 02/27/25 09:10: VBG pH 7.30 L, VBG pCO2 51.4 H, VBG pO2 29.7, VBG HCO3 24.8, VBG Total CO2 26.4, VBG O2 Saturation 53.1, VBG Base Excess -1.6, VBG Lactic Acid 2.3 H 02/27/25 09:23: Urine Color Yellow, Urine Appearance Clear, Urine pH 5.5, Ur Specific [place] >= 1.030, Urine Protein 2+ A, Urine Glucose (UA) Negative, Urine Ketones Trace, Urine Blood 2+ A, Urine Nitrate Negative, Urine Bilirubin 2+ A, Urine Urobilinogen 1.0, Ur Leukocyte Esterase Negative, Urine RBC 3-5, Urine WBC None, Ur Squamous Epith Cells Occasional, Urine Bacteria 2+, Hyaline Casts Occ 02/27/25 08:56 02/27/25 08:56 Orders (Tests/Meds): ED MEDICATIONS Discontinued Medications Generic Name Dose Route Start Last Admin Trade Name Freq PRN Reason Stop Dose Admin Acetaminophen 1,000 mg 02/27/25 09:15 02/27/25 09:25 Acetaminophen 1,000mg/100ml Vial IV 02/27/25 09:16 1,000 mg ONCE ONE Administration Lactated Ringer's 1,000 mls @ 999 mls/hr 02/27/25 09:38 02/27/25 09:56 Lactated Ringer's 1000 Ml Bag IV 02/27/25 10:38 999 mls/hr .Q1H1M ONE Administration Ceftriaxone Sodium 2 gm/ 100 mls @ 200 mls/hr 02/27/25 10:40 02/27/25 10:56 Sodium Chloride IV 02/27/25 11:09 200 mls/hr ONCE ONE Administration Iopamidol 160 ml 02/27/25 10:39 02/27/25 10:40 Iopamidol-370 (76%);100ml Bottle IV 02/27/25 10:40 160 ml ONCE ONE Administration Sodium Chloride 10 ml 02/27/25 10:39 02/27/25 10:40 Sodium Chloride 0.9% 10ml Syr (Rad Only) IV 02/27/25 10:40 10 ml ONCE ONE Administration Sodium Chloride 100 ml 02/27/25 10:39 02/27/25 10:40 0.9 % Sodium Chloride 50 Ml Vial IV 02/27/25 10:40 100 ml ONCE ONE Administration Sodium Chloride 500 ml 02/27/25 10:41 02/27/25 11:11 Sodium Chloride 0.9% 500ml Bag IV 02/27/25 10:42 500 ml ONCE ONE Administration ORDERS Category Date Time Status CT angio abd/pel - TRAUMA Stat Cat Scan 02/27/25 09:[address] angio chest - dissection Stat Cat Scan 02/27/25 09:[address] angio head Stat Cat Scan 02/27/25 09:[address] angio neck Stat Cat Scan 02/27/25 09:[address] bony pelvis Stat Cat Scan 02/27/25 09:[address] cervical spine wo con Stat Cat Scan 02/27/25 09:[address] head/brain wo con Stat Cat Scan 02/27/25 09:[address] lumbar spine wo con Stat Cat Scan 02/27/25 09:[address] thoracic spine wo con Stat Cat Scan 02/27/25 09:11 Completed Ankle XR - Left minimum 3 Views [XR ankle LT min 3V] Exams 02/27/25 09:11 Completed Stat Ankle XR -Right minimum 3 Views [XR ankle RT min 3V] Exams 02/27/25 09:11 Completed Stat Tibia/fibula XR left 2 views [XR tibia fibula LT 2V] Exams 02/27/25 09:11 Completed Stat Tibia/fibula XR right 2 views [XR tibia fibula RT 2V] Exams 02/27/25 09:11 Completed Stat CBC w/Auto Diff [Complete Blood Count Auto Diff] Stat Lab 02/27/25 08:56 Completed CK [Creatine Kinase] Stat Lab 02/27/25 08:56 Completed CMP [Comprehensive Metabolic Panel] Stat Lab 02/27/25 08:56 Completed MAG [Magnesium] Stat Lab 02/27/25 08:56 Completed PHOS [Phosphorous] Stat Lab 02/27/25 08:56 Completed PT INR [Prothrombin Time INR] Stat Lab 02/27/25 08:56 Completed PTT [Activated Partial Thrombo Time] Stat Lab 02/27/25 08:56 Completed Rapid PCR Covid and Flu A/B Stat Lab 02/27/25 08:59 Completed T4 (Thyroxine) Stat Lab 02/27/25 08:56 Completed TSH [Thyroid Stimulating Hormone] Stat Lab 02/27/25 08:56 Completed UA [Urinalysis and Microscopic] Stat Lab 02/27/25 09:23 Completed Blood Culture Stat Micro 02/27/25 10:00 Received Urine Culture Stat Micro 02/27/25 09:23 Received VBG [Venous Blood Gas] Stat RT 02/27/25 09:10 Completed ECG Data Tracing #1: I reviewed this ECG and interpreted as documented below: Normal sinus rhythm with a ventricular rate of [address] changes concerning for STEMI. Some artifact. Normal intervals ECG initial impression date: 02/27/25 ECG initial impression time: 08:58 Medical Decision Narrative: In summary, this patient is a 85-year-old female presenting to the Emergency Department for evaluation of pain everywhere, bilateral ankle pain after mechanical ground-level fall. She was unable to get up and then fell again. She is also had a few days of upper respiratory infection type symptoms. Differential diagnoses considered include but are not limited to pneumonia, sepsis, traumatic injury from fall, rhabdomyolysis, electrolyte derangement, viral syndrome. Ruling out the most morbid conditions drove assessment. May or It should be noted patient's history includes dementia and hypothyroidism which may not be at goal therapy. This complicates all aspects of care by increasing patient's risk for morbidity. I reviewed patient's past medical records and noted evaluation last year with the close C-spine fracture. On exam, the patient has tenderness to palpation all over her entire body, head to toe. She has a scalp hematoma but no other obvious external signs of traumatic injury. She complains of bilateral ankle pain as well as pain everywhere. She is alert, moves all 4 extremities equally. Vitals are normal on cardiac telemetry. She has left-sided rhonchi but no significantly increased work of breathing. Workup included lab evaluation to evaluate for infectious, metabolic derangements. I also obtained full head to pelvis trauma CT scans with angiograms as well as x-rays of the painful bilateral lower legs. Patient was given IV acetaminophen and a bolus of IV fluids for symptomatic improvement. I independently interpreted x-rays and CT scan prior to the radiologist read and noted lung nodule versus pneumonia. I do not see any obvious fractures, no large brain bleed please see their read for final interpretation. They noted microvascular changes to the brain as well as some intracranial stenosis, no large vessel occlusion. Patient also has osteopenia. In this clinical setting with the patient's infectious symptoms, I favor that this nodular opacity could clinically correlate with pneumonia. I did advise family of this and advised outpatient follow-up though for monitoring to make sure she does not have potential malignancy. Labs were obtained that demonstrated leukocytosis and very mildly elevated lactic acid. Patient also has an ALNA with a creatinine up to 1.3 from 0.9. Urine is grossly concerning for infection. Given UTI as well as possible pneumonia, I did give the patient IV Rocephin. On reassessment, patient had great improvement after administration of IV fluids. She was not given sepsis bolus as I do not feel that she likely is septic based on normal vitals and also I felt fluid overload could be detrimental to her with acute pneumonia and subjective shortness of breath. Vitals are reassuring on cardiac telemetry and patient is able to ambulate without difficulty once spines are cleared. I advised the family that blood cultures were sent and are pending. She does have leukocytosis with neutrophilic predominance, mildly elevated lactic, and she has source of infection with pneumonia and UTI. I advised admission would be safest pending blood cultures so that the patient can receive IV antibiotics in the meantime and be monitored, especially given the frequent falls. They would prefer to try and take her home, as they are having difficulty with personal things at home right now and have great family support at home. Given this, I will discharge the patient with very strict return precautions. I prescribed Levaquin and give instructions for very close outpatient follow-up. Patient was discharged to care of her family (daughter) Critical Care Critical Care Time Critical Care Time: Yes Attestation: On 02/27/25, the high probability of a clinically significant, sudden or life threatening deterioration of the following system(s) required my full and direct attention, intervention and personal management. The time I documented below is in addition to time spent performing reported procedures but includes the following listed in this critical care notation. Total Time Total Critical Care Time: 35
[2025-02-27 09:57] LABS: Bacteria,Urine 2+ /lpf; Hyaline Casts,Urine OCC #/lpf (0); Squamous Epithelial Cell,Urine Occasional #/hpf (0-5)
[2025-02-27 09:58] LABS: Thyroid Stimulating Hormone 3.21 uIU/mL (0.465-4.68)
--- NOTE | 2025-02-27 10:09 | PC.NURSE ---
pt with RAD to CT at this time
--- NOTE | 2025-02-27 10:12 | PC.NURSE ---
pt to ct
[2025-02-27] MEDS: 0.9 % SODIUM CHLORIDE 50 ML VIAL 100 ML IV (10:40)
[2025-02-27] MEDS: IOPAMIDOL-370 (76%);100ML BOTTLE 160 ML IV (10:40)
[2025-02-27] MEDS: SODIUM CHLORIDE 0.9% 10ML SYR (RAD ONLY) 10 ML IV (10:40)
--- NOTE | 2025-02-27 10:43 | PC.NURSE ---
dr cruz at bedside to update family
--- NOTE | 2025-02-27 10:49 | PC.NURSE ---
pt back from CT. family and staff at BS at this time.
[2025-02-27] MEDS: CEFTRIAXONE SODIUM 2 GM in 0.9 % SODIUM CHLORIDE 100 ML IV (10:56)
[2025-02-27] MEDS: SODIUM CHLORIDE 0.9% 500ML BAG 500 ML IV (11:11)
--- NOTE | 2025-02-27 11:22 | PC.NURSE ---
c collar removed per er md
--- NOTE | 2025-02-27 11:58 | PC.NURSE ---
pt ambulated 10ft in room and did well and was 95% on room air
[2025-02-27 13:24] LABS: Reflex Lactic Add Lactic Reflex
--- NOTE | 2025-02-28 21:16 | PC.NURSE ---
Positive blood culture reported to Dr Husain No further orders received
--- NOTE | 2025-02-28 21:16 | EXP.EVENT.NO ---
I received blood culture results from the lab and reviewed the chart myself. I feel the anaerobic gram-positive cocci the ground is likely secondary to contamination. Only one of the 2 anaerobic bottles, few GPCs, and none present on aerobic bottles. Additionally, patient has what appears to be a chronically elevated white count around 14,000, and I feel the lactate elevation at 2.3 is likely secondary to the fact that we do not put our venous blood gas samples on ice prior to transport to lab and because of this, VBG lactates usually run a little higher. Will continue to follow MD Lisha
== END 2025-02-27 12:39 | disposition home or self-care (01) ==
PROVIDERS: Emergency Provider Emergency Medicine
DX: I67.2 Cerebral atherosclerosis (principal); I67.89 Other cerebrovascular disease; J18.9 Pneumonia, unspecified organism; N39.0 Urinary tract infection, site not specified; R91.1 Solitary pulmonary nodule; N17.9 Acute kidney failure, unspecified; M25.551 Pain in right hip; M25.571 Pain in right ankle and joints of right foot; M25.572 Pain in left ankle and joints of left foot; R05.9 Cough, unspecified; R09.81 Nasal congestion; E03.9 Hypothyroidism, unspecified; F03.90 Unspecified dementia, unspecified severity, without behavioral disturbance, psychotic disturbance, mood disturbance, and anxiety
CPT/HCPCS: 70450; 70496; 70498; 71275; 72125; 72128; 72131; 72192; 73590; 73610; 74174; 80053; 81001; 82550; 82803; 83735; 84100; 84436; 84443; 85025; 85610; 85730; 87040; 87086; 87186; 87636; 93005; 96365; 96374; 96375; 99291; J0131; J0696; J7120; Q9967

== ENCOUNTER 2025-04-10 11:52 | Emergency (ER) | payer MEDICARE, SELFPAY ==
[2025-04-10 12:00] VITALS: BP 174/89; PULSE 71; RESP 16; TEMP 36.3; O2SAT 98; BMI 29.0
--- NOTE | 2025-04-10 12:02 | ECG_ITS ---
APPROVED REPORT Exam: Resting ECG HR:64 bpm ECG Measurements Heart Rate 64 AXES SD 127 P 48 QRSd 81 QRS 6 QT 427 T [address] QTc [address] and T wave changes in lateral leads with no reciprocal elevations Electronically signed by : JEFF FALCON, 04/11/2025 19:39:56
--- NOTE | 2025-04-10 12:08 | [facility].EDGENADL ---
Discharge Plan Disposition Patient Disposition: Home, Self-Care Condition: Good Prescriptions Prescriptions: New cephalexin 500 mg capsule 500 mg PO BID 5 Days Qty: 10 0RF No Action quetiapine 25 mg tablet 25 mg PO DAILY donepezil 5 mg tablet 5 mg PO DAILY levothyroxine [Synthroid] 100 mcg tablet 100 mcg PO DAILY paroxetine HCl 20 mg tablet 20 mg PO DAILY memantine 10 mg tablet 10 mg PO HS levofloxacin 750 mg tablet 750 mg PO DAILY 7 Days Qty: 7 0RF Referrals Follow up/Referrals: Lacie Duarte APRN [Nurse Practitioner] - See instructions (Nasal fracture) Provider,Referral, [Referring] - See instructions Activity Restrictions/Add. Instructions Additional Instructions/Restrictions: As we discussed I will send an antibiotic into your pharmacy. I have also referred you to ear nose and throat for evaluation of the nasal fracture. You also have a transverse process fracture of the first lumbar vertebra and if you have persistent new or worsening signs or symptoms in this area your PCP may need to refer you for an MRI and/or spinal surgery evaluation. For now I recommend Tylenol alternating with Motrin. The sutures need to be removed in 5 days. I recommend soap and water and leave open to air. No ointments or creams until the sutures come out. If you have any increasing pain redness or drainage return to the emergency department. Clinical Impressions Clinical Impression: Closed fracture nasal bone Qualifiers: Encounter type: initial encounter Qualified Code(s): S02.2XXA - Fracture of nasal bones, initial encounter for closed fracture Laceration of nose Qualifiers: Encounter type: initial encounter Qualified Code(s): S01.21XA - Laceration without foreign body of nose, initial encounter Laceration of lip Qualifiers: Encounter type: initial encounter Qualified Code(s): S01.511A - Laceration without foreign body of lip, initial encounter Fracture of transverse process of lumbar vertebra Qualifiers: Encounter type: initial encounter Fracture type: closed Qualified Code(s): S32.009A - Unspecified fracture of unspecified lumbar vertebra, initial encounter for closed fracture Instructions Patient Instructions: DI for Nose Fracture, DI for Laceration Repair Print Language Print Language: Bengali Discharge ED Provider: Tino Husain General Adult HPI <LESA Cervantes - Last Filed: 04/10/25 20:38> General Chief complaint: Neck Pain/Injury Stated complaint: AO 04/10 1140 fall hit face bleeding nose Time Seen by Provider: 04/10/25 12:08 Mode of Arrival: Wheelchair Source of Information: Patient Description of Symptoms (Recalled from ER Triage Doc. by RN): Patient presents today with mechanical fall over dog. Face met concrete with nose laceration, lip laceration, and loose teeth. Patient reports head, neck, and right shoulder pain. Patient placed in cervial collar upon initial exam. History of Present Illness HPI narrative: Patient presents for evaluation of a fall. Patient was walking outside and had an accidental fall after tripping over her dog. She fell face first striking her face against the concrete. She did not lose consciousness and was ambulatory afterwards. She complains of face pain neck pain right shoulder pain and right knee pain but denies thoracic or lumbar pain. She denies hip pain shortness of breath chest pain fever chills hemoptysis medic easy melena nausea vomit diarrhea. Patient does have a past medical history of dementia however she is on no blood thinners. Related Data Home Medications ?Medication ?Instructions ?Recorded ?Confirmed donepezil 5 mg tablet 5 mg PO DAILY 02/27/25 02/27/25 levothyroxine 100 mcg tablet 100 mcg PO DAILY 02/27/25 02/27/25 (Synthroid) memantine 10 mg tablet 10 mg PO HS 02/27/25 02/27/25 paroxetine HCl 20 mg tablet 20 mg PO DAILY 02/27/25 02/27/25 quetiapine 25 mg tablet 25 mg PO DAILY 02/27/25 02/27/25 Previous Rx's ?Medication ?Instructions ?Recorded levofloxacin 750 mg tablet 750 mg PO DAILY 7 days #7 tabs 02/27/25 cephalexin 500 mg capsule 500 mg PO BID 5 days #10 caps 04/10/25 Allergies Allergy/AdvReac Type Severity Reaction Status Date / Time Penicillins Allergy Hives Verified 02/27/25 09:33 [facility] <LESA Cervantes - Last Filed: 04/10/25 20:38> [facility] Disclaimer: The information contained in this section may have been updated after the patient was seen, as this information can be updated by other users. Social History Smoking Status: Never smoker alcohol intake: never current occupational status: retired Travel in the last 8 weeks?: None Have you lived/traveled outside [place] in past 30 days?: No Contact w/someone who lives/traveled outside US past 30 days?: No Exposure to someone with infectious disease in past 14 days?: No Do you have a fever (greater than 100.4 F or 38 C)?: No Have you tested positive for COVID-19?: No Exposed to someone with COVID-19 in past 14 days?: No Do you have a sore throat?: No Do you have a cough?: No Do you have any weakness?: No Do you have any diarrhea?: No Are you experiencing any unusual bleeding?: No Do you have any muscle aches/pain?: No Do you have any abdominal pain?: No Are you experiencing loss of taste or smell?: No <LESA Cervantes - Last Filed: 04/10/25 20:38> ROS Obtained: Yes Systems reviewed as appropriate & no additional complaints except as documented Physical Exam <LESA Cervantes - Last Filed: 04/10/25 20:38> General General appearance: alert (Patient is oriented to self and circumstance currently but not place and time which is her normal baseline) Respiratory Respiratory exam: Present normal lung sounds bilaterally Cardiovascular Cardiovascular exam: Present regular rate Neurological Exam Neurological exam: Present alert and CN II-XII intact; Absent oriented X3 Medical Decision Making <LESA Cervantes - Last Filed: 04/10/25 20:38> Medical Records Medical records reviewed: Yes I reviewed the patient's medical records. Screening: Per USPSTF and CDC recommendations, given the prevalence of disease in our region, it is our hospital?s policy to screen for HIV and viral Hepatitis for all patients aged 18 and over and those with ongoing risk factors. Jagdeep Inquiry Pt receiving controlled substance: No Vital Signs: 04/10/25 12:00 04/10/25 12:34 04/10/25 13:30 Temperature 97.3 F L Temperature Source Oral Pulse Rate 63 66 Pulse Rate [Right] 71 Respiratory Rate 16 16 20 Blood Pressure 155/84 H 159/77 H Blood Pressure [Left Arm] 174/89 H Blood Pressure Mean [Left Arm] 117 02 Sat by Pulse Oximetry 98 97 93 L Oxygen Delivery Method Room Air 04/10/25 14:30 04/10/25 15:33 Temperature 98.3 F Temperature Source Pulse Rate 70 62 Pulse Rate [Right] Respiratory Rate 18 16 Blood Pressure 157/84 H 168/72 H Blood Pressure [Left Arm] Blood Pressure Mean [Left Arm] 02 Sat by Pulse Oximetry 91 L Oxygen Delivery Method Room Air Orders (Tests/Meds): ED MEDICATIONS Discontinued Medications Generic Name Dose Route Start Last Admin Trade Name Freq PRN Reason Stop Dose Admin Acetaminophen 1,000 mg 04/10/25 12:18 04/10/25 12:33 Acetaminophen 500mg Tab PO 04/10/25 12:19 1,000 mg ONCE ONE Administration Lidocaine/Epinephrine 20 ml 04/10/25 13:48 04/10/25 13:55 Lidocaine 1% W/Epi 1:100,000 20ml Vial SQ 04/10/25 13:49 20 ml ONCE ONE Administration ORDERS Category Date Time Status CT cervical spine wo con Stat Cat Scan 04/10/25 12:[address] facial bones wo con Stat Cat Scan 04/10/25 12:[address] head/brain wo con Stat Cat Scan 04/10/25 12:[address] lumbar spine wo con Stat Cat Scan 04/10/25 12:[address] thoracic spine wo con Stat Cat Scan 04/10/25 12:17 Completed Knee XR right 3 views [XR knee RT 3V] Stat Exams 04/10/25 12:17 Completed Shoulder XR right miminum 2 views [XR shoulder RT min Exams 04/10/25 12:59 Completed 2V] Stat Medical Decision Narrative: In summary patient is a 85-year-old female who presents to the emergency department for evaluation of a ground-level fall after tripping over her dog. Patient is initially normotensive at 174/89 pulse 71 respiratory rate 16 satting at 98% on room air upon arrival, afebrile at 97.3. Physical exam is remarkable for a laceration over the bridge of her nose, she has stigmata of epistaxis but no active hemorrhage, extraocular movements are intact without pain, she has a laceration on the inside of her upper lip anteriorly that is currently not bleeding. It is not through and through. Patient complains of pain at the right shoulder but is neurovascularly intact and has full range of motion and no palpable deformity, she has an abrasion over the patella and tibial tuberosity of the right lower extremity but no swelling or palpable bony deformity. She is neurovascular intact distally in all 4 extremities. Glascow coma score is 15 cranial nerves II through XII are intact grossly to exam. Differential diagnosis includes intracranial injury versus C-spine injury versus nasal fracture versus open fracture versus lower extremity fracture etc. Initial workup will be conducted with ED trauma scans without contrast along with facial series and plain film x-rays of the right knee and right shoulder. Initial interventions include c-collar and acetaminophen for now. Initial workup reviewed by me and my informal trepidation of her imaging shows comminuted left and right nasal bone fracture that is not open and a possible L1 transverse process fracture of undetermined age. Upon repeat evaluation patient has no back pain is asymptomatic. Given this patient's laceration were repaired primarily with 6 interrupted nylon sutures on her nose and three 5.0 fast gut for the inside of her lip. Patient is appropriate for discharge with prescription for Keflex with first dose given here and prescription to her pharmacy. Patient advised to follow-up with PCP for persistent new or worsening signs or symptoms or return to the ER as needed. <Tino Husain MD - Last Filed: 04/11/25 15:22> Vital Signs: 04/10/25 12:00 04/10/25 12:34 04/10/25 13:30 Temperature 97.3 F L Temperature Source Oral Pulse Rate 63 66 Pulse Rate [Right] 71 Respiratory Rate 16 16 20 Blood Pressure 155/84 H 159/77 H Blood Pressure [Left Arm] 174/89 H Blood Pressure Mean [Left Arm] 117 02 Sat by Pulse Oximetry 98 97 93 L Oxygen Delivery Method Room Air 04/10/25 14:30 04/10/25 15:33 Temperature 98.3 F Temperature Source Pulse Rate 70 62 Pulse Rate [Right] Respiratory Rate 18 16 Blood Pressure 157/84 H 168/72 H Blood Pressure [Left Arm] Blood Pressure Mean [Left Arm] 02 Sat by Pulse Oximetry 91 L Oxygen Delivery Method Room Air Orders (Tests/Meds): ED MEDICATIONS Discontinued Medications Generic Name Dose Route Start Last Admin Trade Name Freq PRN Reason Stop Dose Admin Acetaminophen 1,000 mg 04/10/25 12:18 04/10/25 12:33 Acetaminophen 500mg Tab PO 04/10/25 12:19 1,000 mg ONCE ONE Administration Lidocaine/Epinephrine 20 ml 04/10/25 13:48 04/10/25 13:55 Lidocaine 1% W/Epi 1:100,000 20ml Vial SQ 04/10/25 13:49 20 ml ONCE ONE Administration ORDERS Category Date Time Status CT cervical spine wo con Stat Cat Scan 04/10/25 12:[address] facial bones wo con Stat Cat Scan 04/10/25 12:[address] head/brain wo con Stat Cat Scan 04/10/25 12:[address] lumbar spine wo con Stat Cat Scan 04/10/25 12:[address] thoracic spine wo con Stat Cat Scan 04/10/25 12:17 Completed Knee XR right 3 views [XR knee RT 3V] Stat Exams 04/10/25 12:17 Completed Shoulder XR right miminum 2 views [XR shoulder RT min Exams 04/10/25 12:59 Completed 2V] Stat ECG Data Tracing #1: I reviewed this ECG and interpreted as documented below: (Sinus rhythm 64 bpm with DE 127, QRS 81, QTc 436. T wave inversions in 1 and aVL as well as V2, but no reciprocal elevations. Leftward leaning axis) Medical Decision Narrative: In summary patient is a 85-year-old female who presents to the emergency department for evaluation of a ground-level fall after tripping over her dog. Patient is initially normotensive at 174/89 pulse 71 respiratory rate 16 satting at 98% on room air upon arrival, afebrile at 97.3. Physical exam is remarkable for a laceration over the bridge of her nose, she has stigmata of epistaxis but no active hemorrhage, extraocular movements are intact without pain, she has a laceration on the inside of her upper lip anteriorly that is currently not bleeding. It is not through and through. Patient complains of pain at the right shoulder but is neurovascularly intact and has full range of motion and no palpable deformity, she has an abrasion over the patella and tibial tuberosity of the right lower extremity but no swelling or palpable bony deformity. She is neurovascular intact distally in all 4 extremities. Glascow coma score is 15 cranial nerves II through XII are intact grossly to exam. Differential diagnosis includes intracranial injury versus C-spine injury versus nasal fracture versus open fracture versus lower extremity fracture etc. Initial workup will be conducted with ED trauma scans without contrast along with facial series and plain film x-rays of the right knee and right shoulder. Initial interventions include c-collar and acetaminophen for now. Initial workup reviewed by me and my informal trepidation of her imaging shows comminuted left and right nasal bone fracture that is not open and a possible L1 transverse process fracture of undetermined age. Upon repeat evaluation patient has no back pain is asymptomatic. Given this patient's laceration were repaired primarily with 6 interrupted nylon sutures on her nose and three 5.0 fast gut for the inside of her lip. Patient is appropriate for discharge with prescription for Keflex with first dose given here and prescription to her pharmacy. Patient advised to follow-up with PCP for persistent new or worsening signs or symptoms or return to the ER as needed. I was consulted by the STEPHANIE, and we discussed the complexity of the problems being addressed. I approved the treatment and management plan for this patient's care in the Emergency Department, thus performing a substantive portion of the medical decision making. Tino Husain MD Procedures <LESA Cervantes - Last Filed: 04/10/25 20:38> Laceration Laceration 1: Site: face (Bridge of nose) Size (cm): 3 Description: linear Depth: simple, single layer Local Anesthetic: lidocaine 1% and with epi Amount of anesthesia used (mL): 5 Pre-repair: wound explored, irrigated extensively and deep structures intact Skin layer closed with: nylon Size (cm): 5-0 Number of sutures: 6 Technique: simple, interrupted Laceration 2: Site: face (Inside middle upper lip Koza) Size (cm): 1.5 Description: linear Depth: simple, single layer Local Anesthetic: lidocaine 1% and with epi Amount of anesthesia used (mL): 5 Pre-repair: wound explored Skin layer closed with: other (Fast gut) Size (cm): 5-0 Number of sutures: 3 Technique: simple, interrupted Critical Care <LESA Cervantes - Last Filed: 04/10/25 20:38> Critical Care Time Critical Care Time: Yes Attestation: On 04/10/25, the high probability of a clinically significant, sudden or life threatening deterioration of the following system(s) required my full and direct attention, intervention and personal management. The time I documented below is in addition to time spent performing reported procedures but includes the following listed in this critical care notation. Total Time Total Critical Care Time: 30
--- NOTE | 2025-04-10 12:17 | CT_ITS ---
PROCEDURE INFORMATION: Exam: CT Lumbar Spine Without Contrast Exam date and time: 04/10/2025 1:01 PM Age: 85 years old Clinical indication: Injury or trauma; Fall; Blunt trauma (contusions or hematomas); Additional info: Fell face first onto concrete TECHNIQUE: Imaging protocol: Computed tomography of the lumbar spine without contrast. Radiation optimization: All CT scans at this facility use at least one of these dose optimization techniques: automated exposure control; mA and/or kV adjustment per patient size (includes targeted exams where dose is matched to clinical indication); or iterative reconstruction. COMPARISON: CT LUMBAR SPINE WO CON 02/27/2025 10:26 AM FINDINGS: Bones/joints: Contour abnormality in the right transverse process of L1 . Subtle lucency in this region series 3 image 16 and 17. There is Mild impaction of the right transverse process. This may represent acute fracture . Broad-based disc bulge, facet hypertrophy, and ligament hypertrophy at L4/L5 consistent with spinal stenosis. . Broad-based disc bulge at L5/S1 consistent with degenerative disc disease. Soft tissues: Unremarkable. IMPRESSION: 1. Contour abnormality in the right transverse process of L1 . Subtle lucency in this region series 3 image 16 and 17. There is Mild impaction of the right transverse process. This may represent acute fracture . 2. Broad-based disc bulge, facet hypertrophy, and ligament hypertrophy at L4/L5 consistent with spinal stenosis. . 3. Broad-based disc bulge at L5/S1 consistent with degenerative disc disease.
--- NOTE | 2025-04-10 12:17 | CT_ITS ---
PROCEDURE INFORMATION: Exam: CT Cervical Spine Without Contrast Exam date and time: 04/10/2025 12:56 PM Age: 85 years old Clinical indication: Injury or trauma; Fall; Blunt trauma; Additional info: Fell face first onto concrete TECHNIQUE: Imaging protocol: Computed tomography of the cervical spine without contrast. Radiation optimization: All CT scans at this facility use at least one of these dose optimization techniques: automated exposure control; mA and/or kV adjustment per patient size (includes targeted exams where dose is matched to clinical indication); or iterative reconstruction. COMPARISON: CT CERVICAL SPINE WO CON 02/27/2025 10:20 AM FINDINGS: Bones: No acute fracture. Normal alignment. No spondylolithesis or subluxation. Disc heigs are maintained. No severe spinal canal or foraminal stenosis. Lungs: Lung apices are normal. Soft tissues: Unremarkable. IMPRESSION: No acute findings.
--- NOTE | 2025-04-10 12:17 | CT_ITS ---
PROCEDURE INFORMATION: Exam: CT Head Without Contrast Exam date and time: 04/10/2025 12:52 PM Age: 85 years old Clinical indication: Injury or trauma; Fall; Blunt trauma (contusions or hematomas); Additional info: Fell face first onto concrete TECHNIQUE: Imaging protocol: Computed tomography of the head without contrast. Radiation optimization: All CT scans at this facility use at least one of these dose optimization techniques: automated exposure control; mA and/or kV adjustment per patient size (includes targeted exams where dose is matched to clinical indication); or iterative reconstruction. COMPARISON: CT ANGIO HEAD 02/27/2025 10:36 AM FINDINGS: Brain: Normal. No hemorrhage. No mass effect or midline shift. Stable hypodensity right basal ganglia likely secondary to old lacunar infarct. Diffuse, chronic white matter microvascular changes redemonstrated. Cortical sulci and white matter are unremarkable for age. Cerebral ventricles: Unremarkable for age. Paranasal sinuses: Visualized sinuses are unremarkable. No fluid levels. Mastoid air cells: Visualized mastoid air cells are well aerated. Bones: Unremarkable. No acute fracture. Soft tissues: Unremarkable. IMPRESSION: No acute intracranial abnormality.
--- NOTE | 2025-04-10 12:17 | XR_ITS ---
PROCEDURE INFORMATION: Exam: XR Right Knee Exam date and time: 04/10/2025 1:04 PM Age: 85 years old Clinical indication: Injury or trauma; Fall; Blunt trauma; Knee; Right; Additional info: Fell face first onto concrete, right knee pain TECHNIQUE: Imaging protocol: Radiologic exam of the right knee. Views: 3 views. COMPARISON: CR XR TIBIA FIBULA RT 2V 02/27/2025 9:32 AM FINDINGS: Bones/joints: Moderate Tricompartmental joint space narrowing and osteophyte formation consistent with degenerative changes. Joint space narrowing most evident in the patellofemoral joint. There is no evidence of acute fracture.There is no evidence of malalignment or dislocation. Soft tissues: Normal. IMPRESSION: 1. Moderate Tricompartmental joint space narrowing and osteophyte formation consistent with degenerative changes. Joint space narrowing most evident in the patellofemoral joint. 2. There is no evidence of acute fracture.There is no evidence of malalignment or dislocation.
--- NOTE | 2025-04-10 12:17 | CT_ITS ---
PROCEDURE INFORMATION: Exam: CT Thoracic Spine Without Contrast Exam date and time: 04/10/2025 12:58 PM Age: 85 years old Clinical indication: Injury or trauma; Fall; Blunt trauma (contusions or hematomas); Additional info: Fell face first onto concrete TECHNIQUE: Imaging protocol: Computed tomography of the thoracic spine without contrast. Radiation optimization: All CT scans at this facility use at least one of these dose optimization techniques: automated exposure control; mA and/or kV adjustment per patient size (includes targeted exams where dose is matched to clinical indication); or iterative reconstruction. COMPARISON: CT THORACIC SPINE WO CON 02/27/2025 10:23 AM FINDINGS: Bones/joints: There is no evidence of acute fracture in the thoracic spine.There is no evidence of malalignment or dislocation. Contour abnormality in the right pedicle of L1. Subtle lucency in this region series 3, image 128. Mild impaction. This may represent acute fracture Soft tissues: Unremarkable. Lymph nodes: Calcified mediastinal nodes may reflect prior granulomatous disease Heart: There is calcification of the aortic valve annulus. There is calcification of the mitral valve annulus. Coronary arteries: Coronary artery calcifications may indicate coronary artery disease. IMPRESSION: Contour abnormality in the right pedicle of L1. Subtle lucency in this region series 3, image 128. Mild impaction. This may represent acute fracture
--- NOTE | 2025-04-10 12:18 | CT_ITS ---
PROCEDURE INFORMATION: Exam: CT Maxillofacial Without Contrast Exam date and time: 04/10/2025 12:54 PM Age: 85 years old Clinical indication: Injury or trauma; Fall; Blunt trauma (contusions or hematomas); Nose; Additional info: Fell face first onto concrete TECHNIQUE: Imaging protocol: Computed tomography of the face without contrast. Radiation optimization: All CT scans at this facility use at least one of these dose optimization techniques: automated exposure control; mA and/or kV adjustment per patient size (includes targeted exams where dose is matched to clinical indication); or iterative reconstruction. COMPARISON: CT FACIAL BONES WO CON 06/09/2024 6:53 PM FINDINGS: Paranasal sinuses: No air-fluid levels. Orbital cavities: Orbits are normal. Globes are unremarkable. Bones: There is a mildly comminuted fracture involving the right and left nasal bones. Anterior nasal spine is intact. Remainder of the osseous structures are intact. Soft tissues: Unremarkable. IMPRESSION: Acute mildly comminuted fracture right and left nasal bones.
[2025-04-10] MEDS: ACETAMINOPHEN 500MG TAB 1000 MG PO (12:33)
[2025-04-10 12:34] VITALS: BP 155/84; PULSE 63; RESP 16; O2SAT 97
--- NOTE | 2025-04-10 12:59 | XR_ITS ---
PROCEDURE INFORMATION: Exam: XR Right Shoulder Exam date and time: 04/10/2025 1:04 PM Age: 85 years old Clinical indication: Injury or trauma; Fall; Blunt trauma (contusions or hematomas); Shoulder; Right; Additional info: Fell face first onto concrete right shoulder pain TECHNIQUE: Imaging protocol: Radiologic exam of the right shoulder. Views: 2 or more views. COMPARISON: CT CERVICAL SPINE WO CON 04/10/2025 12:56 PM FINDINGS: Bones/joints: Mild degenerative changes in the acromioclavicular joint and glenohumeral joint. There is no evidence of acute fracture.There is no evidence of malalignment or dislocation. Soft tissues: Normal. IMPRESSION: There is no evidence of acute fracture.There is no evidence of malalignment or dislocation.
[2025-04-10 13:30] VITALS: BP 159/77; PULSE 66; RESP 20; O2SAT 93
[2025-04-10] MEDS: LIDOCAINE 1% W/EPI 1:100,000 20ML VIAL 20 ML SQ (13:55)
[2025-04-10 14:30] VITALS: BP 157/84; PULSE 70; RESP 18; O2SAT 91
[2025-04-10 15:33] VITALS: BP 168/72; PULSE 62; RESP 16; TEMP 36.8; O2SAT 100
== END 2025-04-10 15:34 | disposition home or self-care (01) ==
PROVIDERS: Emergency Provider Emergency Medicine; PCP Internal Medicine
DX: S32.018A Other fracture of first lumbar vertebra, initial encounter for closed fracture (principal); S02.2XXA Fracture of nasal bones, initial encounter for closed fracture; S01.511A Laceration without foreign body of lip, initial encounter; M54.2 Cervicalgia; M25.511 Pain in right shoulder; W01.10XA Fall on same level from slipping, tripping and stumbling with subsequent striking against unspecified object, initial encounter
CPT/HCPCS: 12013; 70450; 70486; 72125; 72128; 72131; 73030; 73562; 93005; 99291; J2004